=== PATIENT | male | born 1995 | race Two or more races ===

== ENCOUNTER 2025-01-01 19:48 | Emergency (ER) | payer MEDICAID, OTHER ==
[~2025-01-01] VITALS: Ht 180.3 cm; Wt 79.4 kg
[2025-01-01 20:02] VITALS: BP 140/83; PULSE 20; RESP 20; TEMP 98.1; O2SAT 97
--- NOTE | 2025-01-01 20:54 | DVH ---
SCROTAL ULTRASOUND CLINICAL HISTORY: Dog bite and laceration to left testicle COMPARISON: None TECHNIQUE: Grayscale, color-flow, and spectral Doppler ultrasound of the scrotum and its contents was performed.. FINDINGS: Right testis: Areas 4.9 x 2.5 x 3.2 cm. No discrete, sizable parenchymal lesions identified. Normal blood flow on spectral analysis. Left testis: Measures 4.0 x 2.4 x 3.4 cm. No discrete, sizable parenchymal lesions identified. Normal blood flow on spectral analysis. Epididymides: Slight asymmetric enlargement of the left epididymis which otherwise demonstrates norm al vascularity. Hydrocele: Trace left hydrocele. Other: No obvious scrotal wall abnormalities or fluid collections are noted. IMPRESSION: Trace left hydrocele which may be reactive. Mild asymmetric prominence of the left epididymis is nonspecific. Correlate with physical exam. No evidence of testicular torsion at this time. No discrete, sizable scrotal wall abnormalities or fluid collections identified on the provided image s.
--- NOTE | 2025-01-01 21:03 | ED.PDOC ---
History of Present Illness(SKN HPI Comments PATIENT C/O A PUNCTURE WOUND TO HIS SCROTUM S/P GETTING BIT BY HIS NIECES DOG. Chief Complaint: Animal Bite Time Seen by MD: 19:54 History of Present Illness: Nurses Notes, Medications, Allergies Allergies: Coded Allergies: NO KNOWN ALLERGIES (Unverified , 01/01/25) Home Meds Active Scripts Ibuprofen (Ibuprofen) 800 Mg Tab, 800 MG PO Q8HP PRN for 5 Days, #15 TAB Prov:DAVID HERRING APPLICATIONS SPECIALIST 01/01/25 Amoxicillin & Pot Clavulanate (AUGMENTIN TABLET) 875 Mg Tb, 875 MG PO BID for 7 Days, #14 TAB Prov:DAVID HERRING APPLICATIONS SPECIALIST 01/01/25 Information Source: Patient Mode of Arrival: Ambulatory Past Medical History PAST MEDICAL HISTORY: Denies Surgical History: Denies all surgeries Family History Family History: Reviewed,noncontributory to illness Social History Smoker: Non-Smoker Alcohol: Denies ETOH Use Drugs: Denies Drug Use Constitutional: denies: chills, diaphoresis, fatigue, fever, malaise, sweats, weakness, others EENTM: denies: blurred vision, double vision, ear bleeding, ear discharge, ear drainage, ear pain, ear ringing, eye pain, eye redness, hearing loss, mouth pain, mouth swelling, nasal discharge, nose bleeding, nose congestion, nose pain, photophobia, tearing, throat pain, throat swelling, voice changes, others Respiratory: denies: cough, hemoptysis, orthopnea, SOB at rest, shortness of breath, SOB with excertion, stridor, wheezing, others Cardiovascular: denies: chest pain, dizzy spells, diaphoresis, Dyspnea on exertion, edema, irregular heart beat, left arm pain, lightheadedness, palpitations, PND, syncope, others Gastrointestinal: denies: abdomen distended, abdominal pain, blood streaked bowels, constipated, diarrhea, dysphagia, difficulty swallowing, hematemesis, melena, nausea, poor appetite, poor fluid intake, rectal bleeding, rectal pain, vomiting, others Genitourinary: denies: burning, dysuria, flank pain, frequency, hematuria, incontinence, penile discharge, penile sore, pain, testicle pain, testicle swelling, urgency, others Neurological: denies: dizziness, fainting, headache, left sided numbness, left sided weakness, numbness, paresthesia, pre-existing deficit, right sided numbness, right sided weakness, seizure, speech problems, tingling, tremors, weakness, others Musculoskeletal: denies: back pain, gout, joint pain, joint swelling, muscle pain, muscle stiffness, neck pain, others Integumetry: reports: laceration (left testicle ); denies: bruises, change in color, change in hair/nails, dryness, lesions, lumps, rash, wounds, others Allergic/Immunocompromised: denies: Difficulty Healing, Frequent Infections, Hives, Itching, others Hematologic/Lymphatic: denies: anemia, blood clots, easy bleeding, easy bruising, swollen glands, others Endocrine: denies: excessive hunger, excessive sweating, excessive thirst, excessive urination, flushing, intolerance to cold, intolerance to heat, unexplained weight gain, unexplained weight loss, others Psychiatric: denies: anxiety, bipolar disorder, depression, hopeless, panic disorder, schizophrenia, sleepless, suicidal, others Physical Exam General Appearance: No Apparent Distress, Normal HEENT: Pharynx Normal Neck: Full Range of Motion, Non-Tender Respiratory: Lungs Clear, No Respiratory Distress, Normal Breath Sounds Cardiovascular: No Murmur, Normal Peripheral Pulses, Regular Rate/Rhythm Breast Exam: Deferred Gastrointestinal: No Organomegaly, Non Tender, Normal Bowel Sounds, Soft Genitalia: Deferred Pelvic: Deferred Rectal: Deferred Extremities: Normal range of motion, Non-tender Musculoskeletal : Apperance: Normal Neurologic: Alert, No Motor Deficits, Normal Affect, Normal Mood, No Sensory Deficits Cerebellar Function: Normal Reflexes: Normal Skin: Dry, Lacerations (One point 5 cm laceration to left testicle bleeding controlled superficial laceration to right upper testicle suprapubic area no noted bleeding foreign bodies), Normal Color, Warm Lymphatic: No Adenopathy Was a procedure done? Was a procedure done?: Yes Sedation Sedation?: No Informed consent obtained: Yes Laceration Repair : Location Left testicle scrotum Length 1 cm Anesthetic: Nothing Laceration Repair Prep: Saline, by Irrigation Laceration Repair Wound Comple: epidermis/dermis repair Laceration Repair: Number of sutures (2 absorbable sutures), Simple Informed consent obtained: Yes Risks, benefits, and alternati: Yes Notes Patient tolerated well with minimal blood loss Differential Diagnosis (INTG) Differential Diagnosis: Abrasion, Hematoma, Laceration, Puncture Wound X-Ray, Labs, Meds, VS Vital Signs Date Time Temp Pulse Resp B/P (MAP) Pulse Ox O2 Delivery O2 Flow Rate FiO2 01/01/25 20:02 98.1 20 20 140/83 (102) 97 98.1 Current Medications Medications (Trade) Dose Ordered Sig/Wolfgang Route Start Time Stop Time Status Last Admin Oxycodone/ Acetaminophen (Percocet 5/ 325MG Tablet) 1 tab ONCE ONCE PO 01/01/25 20:30 01/01/25 20:31 DC 01/01/25 21:31 Ibuprofen (Motrin Tablet) 600 mg ONCE ONCE PO 01/01/25 20:30 01/01/25 20:31 DC 01/01/25 21:30 X-Ray, Labs, Meds, VS Comment See procedure note. Testicular ultrasound shows incidental finding of hydrocele no noted bleeding or hematoma testicle Script prophylactic antibiotics and ibuprofen advised take medication as prescribed side effects discussed. Advised to rest, ice supportive underwear advised to monitor for signs and symptoms of infection and return to the ER. Follow up with PCP in 2 days for wound evaluation. ER return precautions given patient indicates understanding and agrees with discharge plan of care. Patient notes tetanus up-to-date Time of 1ST Reevaluation: 19:54 Reevaluation 1ST: Unchanged Time of 2ND Reevaluation: 21:55 Reevaluation 2ND: Improved Patient Education/Counseling: Diagnosis, Treatment, Prognosis, Need For Follow Up Family Education/Counseling: No Family Present SEPSIS Sepsis Screen Date sepsis recognized/suspect: Jan 01, 2025 Time Sepsis recognized/suspect: 2004 Recent Procedure: No On Antibiotic Therapy: No Respiratory Rate >20: No Heart Rate >90: No Temp<36 C (96.8 F) or >38.3 C: No SBP <90 or MAP <65 mmHG: No New Acute Mental Status Change: No Is the patient on CPAP, BIPAP,: No Physician Orders Testicular Ultrasound (01/01/25 20:14) Apply Ice To Affected Area (01/01/25 20:16) Vital Signs Date Time Temp Pulse Resp B/P (MAP) Pulse Ox O2 Delivery O2 Flow Rate FiO2 01/01/25 20:02 98.1 20 20 140/83 (102) 97 98.1 Medications Medications Dose Ordered Sig/Wolfgang Route Start Time Stop Time Status Last Admin Dose Admin Ibuprofen 600 mg ONCE ONCE PO 01/01/25 20:30 01/01/25 20:31 DC 01/01/25 21:30 Oxycodone/ Acetaminophen 1 tab ONCE ONCE PO 01/01/25 20:30 01/01/25 20:31 DC 01/01/25 21:31 Departure 1 Departure Time of Disposition: 21:26 Impression: Primary Impression: Dog bite of groin Disposition: HOME / SELF CARE / HOMELESS Condition: Stable e-Prescriptions Ibuprofen (Ibuprofen) 800 Mg Tab 800 MG PO Q8HP PRN for 5 Days, #15 TAB Prov: DAVID HERRING 01/01/25 Amoxicillin & Pot Clavulanate (AUGMENTIN TABLET) 875 Mg Tb 875 MG PO BID for 7 Days, #14 TAB Prov: DAVID HERRING 01/01/25 Discharged With: Self Critical Care Note Critical Care Time?: No Stability Stability form required: No DAVID HERRING Jan 01, 2025 21:03
[2025-01-01] MEDS ORDERED: AUG875T PO (21:29)
[2025-01-01] MEDS: IBUPROFEN 600 MG TAB PO ONE (21:30)
[2025-01-01] MEDS ORDERED: IBUP-1456 PO (21:30)
[2025-01-01] MEDS: OXYCODONE W/ ACETAMINOPHEN 5/325MG TABLET PO ONE (21:31)
== END 2025-01-01 21:42 | disposition home or self-care (01) ==
LOC: ER 19:48
DX: S31.154A Open bite of abdominal wall, left lower quadrant without penetration into peritoneal cavity, initial encounter (principal); W54.0XXA Bitten by dog, initial encounter; Y93.89 Activity, other specified; Y92.89 Other specified places as the place of occurrence of the external cause; Y99.8 Other external cause status
CPT/HCPCS: 12001; 76870